=== PATIENT | female | born 1995 | race Two or more races ===

== ENCOUNTER 2020-06-30 18:28 | Emergency (ER) | payer OTHER ==
[~2020-06-30] VITALS: Ht 154.9 cm; Wt 71.2 kg
[2020-06-30] MEDS ORDERED: RISPERDAL0.5 MG (18:43)
[2020-07-01] MEDS ORDERED: INTESTINEX680 M2 PO (01:34)
[2020-07-01] MEDS ORDERED: LEVSIN0.125 MG PO (01:34)
[2020-07-01] MEDS ORDERED: PEPCID AC20 MG PO (01:34)
== END 2020-07-01 01:48 | disposition home or self-care (01) ==
LOC: ER 18:28
DX: R19.7 Diarrhea, unspecified (principal); R10.13 Epigastric pain; Z03.818 Encounter for observation for suspected exposure to other biological agents ruled out